=== PATIENT | female | born 1950 | race Hispanic/Latino ===

== ENCOUNTER 2017-11-24 08:37 | Outpatient (CLI) | payer MEDICARE ==
--- NOTE | 2017-11-24 10:11 | ULT ---
VENOUS DOPPLER ULTRASOUND OF THE LEFT LOWER EXTREMITY: HISTORY: Left lower extremity edema and redness. TECHNIQUE: Weber-scale ultrasound with color-flow and spectral Doppler imaging of the deep venous system of the l eft lower extremity was performed. FINDINGS: There is good flow, compression, and augmentation noted in the left common femoral, femoral, deep fem oral, popliteal, posterior tibial, antecubital, dorsalis pedis, and greater saphenous veins. No Bake r cyst is seen in the popliteal fossa. IMPRESSION: No evidence of deep venous thrombosis in the left lower extremity. POS: [facility]
== END 2017-11-24 08:38 | disposition home or self-care (01) ==
LOC: NAV ULT 08:37
PROVIDERS: ATTEND Nurse Practitioner Family
DX: M79.89 Other specified soft tissue disorders (principal)

== ENCOUNTER 2018-01-10 11:11 | Outpatient (CLI) | payer MEDICARE ==
--- NOTE | 2018-01-10 12:23 | RAD ---
LEFT KNEE 4 VIEWS: HISTORY: Left knee anterior pain. COMPARISON: None. FINDINGS: Moderate compartment joint space narrowing with osteophyte formation. Incidental note is made of a f labella. There also appears to be a free body in the posterior recess. IMPRESSION: 1. Moderate medial compartment osteoarthritic disease. 2. Free bodies in the posterior recess. 3. No acute fracture or malalignment. POS: [facility]
== END 2018-01-10 11:12 | disposition home or self-care (01) ==
LOC: NAV RAD 11:11
PROVIDERS: ATTEND Nurse Practitioner Family
DX: M25.562 Pain in left knee (principal); M17.12 Unilateral primary osteoarthritis, left knee